=== PATIENT | male | born 1980 | race Caucasian/White ===

== ENCOUNTER 2018-06-01 08:53 | Emergency (ER) | payer BC, OTHER ==
--- OUTSIDE RECORDS SUMMARY | 2018-06-01 09:07 | XMS REPORT | Continuity of Care Document ---
:1980 External Reference #:[id number] Author Name Ann Del Rio M.D. Address [address] [place] [address] Care Team Providers Name Role Phone Ann Del Rio M.D. 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 Active Onset: 06/15/2016 Crohn's disease Ann Del Rio M.D. 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 Iron Budesonide 09/24/ Active Caps DR Part 3mg 2 cap by I10 Monica Del Rio mouth Ann Menendez, every M.D. day-GI Anucort-HC 02/09/ Active Suppository 25mg 24unit [address] I10 Quang, 2017 s of rectum Ahmad M., twice a M.D. day as needed Lisinopril 06/15/ Active Tablets 10mg 90tabs 1 by I10 Quang, 2017 mouth Ahmad M., every day M.D. Womens Daily 02/09/ Hx Tablets 90tabs 1 by E55.9 Quang, Formula/Folic 2016 - mouth Ahmad M., Acid/Calcium/ 10/02/ every day M.D. Iron 2018 Tricor 08/25/ Hx Tablets 145mg 90tabs 1 by E78.2 Quang, 2017 - mouth Ahmad M., 05/23/ every day M.D. 2019 Pentasa 06/15/ Hx Capsules ER 500mg 3 cap by I10 Quang, 2017 - mouth Ahmad M., 09/24/ twice a M.D. 2018 day-By GI Pravastatin / Hx Tablets 20mg 90tabs 1 by E78.2 Quang, Sodium 0000 - mouth Ahmad M., 11/08/ every at M.D. 2018 bedtime Immunizations Description No Information Available Vital Signs Date Vital Result Comment 05/23/2018 8:48am BP Systolic 132 mmHg BP Diastolic 74 mmHg Height 67 inches 5'7" Weight 157.00 lb BMI (Body Mass Index) 24.6 kg/m2 Heart Rate 96 /min Respiratory Rate 16 /min 04/12/2018 8:35am BP Systolic 110 mmHg BP Diastolic 68 mmHg Height 67 inches 5'7" Weight 157.00 lb BMI (Body Mass Index) 24.6 kg/m2 Heart Rate 78 /min Respiratory Rate 16 /min 04/08/2018 4:21pm BP Systolic 134 mmHg BP Diastolic 66 mmHg Height 67 inches 5'7" Weight 159.00 lb BMI (Body Mass Index) 24.9 kg/m2 Heart Rate 87 /min Respiratory Rate 16 /min 11/08/2017 3:11pm BP Systolic 130 mmHg BP Diastolic 70 mmHg Height 67 inches 5'7" Weight 159.00 lb BMI (Body Mass Index) 24.9 kg/m2 Heart Rate 89 /min Respiratory Rate 16 /min 10/02/2017 1:45pm BP Systolic 126 mmHg BP Diastolic 78 mmHg Height 67 inches 5'7" Weight 161.00 lb BMI (Body Mass Index) 25.2 kg/m2 Heart Rate 87 /min Respiratory Rate 18 /min 09/24/2017 9:20am BP Systolic 130 mmHg BP Diastolic 78 mmHg Height 67 inches 5'7" Weight 161.00 lb BMI (Body Mass Index) 25.2 kg/m2 Heart Rate 91 /min Respiratory Rate 18 /min 06/22/2017 8:48am BP Systolic 110 mmHg BP Diastolic 80 mmHg Height 67 inches 5'7" Weight 158.00 lb BMI (Body Mass Index) 24.7 kg/m2 Heart Rate 75 /min Respiratory Rate 18 /min 02/09/2017 10:11am BP Systolic 110 mmHg BP Diastolic 70 mmHg Height 67 inches 5'7" Weight 156.00 lb BMI (Body Mass Index) 24.4 kg/m2 Heart Rate 95 /min Respiratory Rate 16 /min 01/02/2017 8:34am BP Systolic 110 mmHg BP Diastolic 72 mmHg Height 67 inches 5'7" Weight 155.00 lb BMI (Body Mass Index) 24.3 kg/m2 Heart Rate 116 /min Respiratory Rate 16 /min 08/25/2016 11:03am BP Systolic 110 mmHg BP Diastolic 78 mmHg Height 67 inches 5'7" Weight 158.00 lb BMI (Body Mass Index) 24.7 kg/m2 Heart Rate 79 /min Respiratory Rate 18 /min 06/23/2016 8:33am BP Systolic 122 mmHg BP Diastolic 72 mmHg Height 67 inches 5'7" Weight 154.00 lb BMI (Body Mass Index) 24.1 kg/m2 Heart Rate 90 /min Respiratory Rate 18 /min 06/15/2016 10:07am BP Systolic 130 mmHg BP Diastolic 88 mmHg Height 67 inches 5'7" Weight 154.00 lb BMI (Body Mass Index) 24.1 kg/m2 Heart Rate 100 /min Respiratory Rate 18 /min Results Test Date Facility Test Result H/L Range Note CBC With Diff 04/12/2018 [facility] WBC 10.3 10*3/uL (4.1-11.0) [address] [facility] ([facility])- - RBC 4.55 10*6/uL Low (4.60-6.10) HGB 13.4 g/dL Low (13.5-18.0) HCT 40.0 % Low (41.0-53.0) MCV 87.8 fL (80.0-95.0) MCH 29.4 pg (27.0-32.0) MCHC 33.4 g/dL (32.0-36.0) RDW 13.5 % (10.5-14.5) PLT 342 10*3/uL (150-450) MPV 9.0 fL (7.1-10.7) Neut % 78.9 % High (35.0-75.0) Lymph % 13.7 % Low (16.0-52.0) [place] % 6.4 % (0.0-8.0) Eos % 0.5 % (0.0-5.0) Baso % 0.5 % (0.0-4.0) Neut # 8.1 10*3/uL High (1.8-7.7) Lymph # 1.4 10*3/uL (1.2-4.8) [place] # 0.7 10*3/uL (0.0-0.8) Eos # 0.0 10*3/uL (0.0-0.5) Baso # 0.0 10*3/uL (0.0-0.2) CMP 04/12/2018 [facility] Sodium 140 mmol/L (136-145) [address] [facility] (607)- - Potassium 4.1 mmol/L (3.6-5.2) Chloride 105 mmol/L (100-108) Co2 27 mmol/L (22-31) Anion Gap 8 mmol/L (7-16) Urea Nitrogen 14 mg/dL (7-24) Creatinine 1.09 mg/dL (0.80-1.30) BUN/Creat Ratio 12.8 RATIO (10.0-20.0) Glucose 80 mg/dL (70-99) Calcium 8.8 mg/dL (8.4-10.2) Total Protein 7.1 g/dL (6.4-8.2) Albumin 3.5 g/dL (3.5-4.6) Globulin 3.6 g/dL (2.7-4.3) Alb/Glob Ratio 1.0 RATIO Alkaline Phosphatase 68 U/L (45-117) Bilirubin,Total 0.4 mg/dL (0.0-1.0) Ast (Sgot) 19 U/L (11-39) Alt (SGPT) 27 U/L (12-78) GFR >60 ml/min/1.73m2 (>59) GFR ( Amer) >60 ml/min/1.73m2 (>59) GFR Interpretation <SEE NOTE> 1 Laboratory test 04/12/2018 [facility] Ferritin @ 84 ng/mL (26-388) finding [address] [facility] (607)- - Iron Panel 04/12/2018 [facility] Iron,Total @ 95 g/dL (35-150) [address] (607)- - Uibc @ 392 g/dL High (130-375) Tibc @ 487 g/dL High (250-450) % Saturation 20 % (12-50) Laboratory test 04/12/2018 [facility] Folate @ >20.0 ng/mL High (3.1- 17.5) finding [address] (607)- - Vitamin B12 @ 402 pg/mL (193-986) Transferrin 373 mg/dL 2 25 Hydroxy Vit D @ 26 ng/mL Low (31-100) 3 Lipid Extended Panel 04/12/2018 [facility] Appearance CLEAR (Clear) [address] [facility] (607)- - Cholesterol @ 148 mg/dL (0-200) Triglyceride @ 117 mg/dL (30-200) HDL Cholesterol @ 52 mg/dL (>40) 4 Chol/HDL Ratio 2.8 RATIO 5 Direct LDL @ 76 mg/dL (<130) 6 VLDL (Calc) 20 mg/dL (0-30) Laboratory test 04/12/2018 [facility] Magnesium 2.3 mg/dL (1.7-2.4) finding [address] [facility] (607)- - TSH,Ultrasensitive @ 2.560 mIU/L (0.360-4.170) Free Thyroxine @ 0.97 ng/dL (0.76-1.46) Lipid Profile (Trig/Chol/HDL) 09/24/2017 [facility] Triglycerides 111 mg/dL 7 Cholesterol 122 mg/dL 8 HDL Cholesterol 50.6 mg/dL 9 LDL Cholesterol 49 mg/dL 10 Laboratory test 09/24/2017 [facility] Erythrocyte Sed Rate 10 mm/Hr N 0-14 finding TSH (Thyroid Stim Horm) 1.18 mcIU/mL N 0.34-5.60 Free T4 (Free Thyroxine) 0.89 ng/dL N 0.61-1.12 Comp Metabolic Panel 09/24/2017 [facility] Sodium 138 mmol/L Low 139- 145 Potassium 3.9 mmol/L N 3.5-5.0 Chloride 103 mmol/L N 101-111 Co2 Carbon Dioxide 27 mmol/L N 22-32 Anion Gap 8 mmol/L N 2-11 Glucose 97 mg/dL N 70-100 Blood Urea Nitrogen 12 mg/dL N 6-24 Creatinine 0.91 mg/dL N 0.67-1.17 BUN/Creatinine Ratio 13.2 N 8-20 Calcium 9.5 mg/dL N 8.6-10.3 Total Protein 6.7 g/dL N 6.4-8.9 Albumin 4.0 g/dL N 3.2-5.2 Globulin 2.7 g/dL N 2-4 Albumin/Globulin Ratio 1.5 N 1-3 Total Bilirubin 0.40 mg/dL N 0.2-1.0 Alkaline Phosphatase 60 U/L N 34-104 Alt 16 U/L N 7-52 Ast 18 U/L N 13-39 Egfr Non- 93.7 >60 Egfr 120.6 >60 11 CBC Auto Diff 09/24/2017 [facility] White Blood Count 7.4 10^3/uL N 3.5-10.8 Red Blood Count 4.57 10^6/uL N 4.0-5.4 Hemoglobin 13.3 g/dL Low 14.0-18.0 Hematocrit 40 % Low 42-52 Mean Corpuscular Volume 88 fL N 80-94 Mean Corpuscular Hemoglobin 29 pg N 27-31 Mean Corpuscular HGB Conc 33 g/dL N 31-36 Red Cell Distribution Width 13 % N 10.5-15 Platelet Count 301 10^3/uL N 150-450 Mean Platelet Volume 9.0 um3 N 7.4-10.4 Abs Neutrophils 5.3 10^3/uL N 1.5-7.7 Abs Lymphocytes 1.4 10^3/uL N 1.0-4.8 Abs Monocytes 0.6 10^3/uL N 0-0.8 Abs Eosinophils 0 10^3/uL N 0-0.6 Abs Basophils 0 10^3/uL N 0-0.2 Abs Nucleated RBC 0 10^3/uL Granulocyte % 71.5 % N 38-83 Lymphocyte % 19.4 % Low 25-47 Monocyte % 8.0 % High 0-7 Eosinophil % 0.4 % N 0-6 Basophil % 0.7 % N 0-2 Nucleated Red Blood Cells % 0 Ua RFX Micro & Culture II 08/13/2017 [facility] Urine Color YELLOW Yellow 12 Urine Clarity CLEAR Clear Urine Glucose - Dipstick NEGATIVE mg/dL Negative Urine Bilirubin - Dipstick NEGATIVE Negative Urine Ketone NEGATIVE mg/dL Negative Urine Specific [place] <=1.005 Low 1.010-1.030 Urine Blood NEGATIVE Negative Urine PH 5.5 Low 6.5-7.5 Urine Protein - Dipstick NEGATIVE mg/dL Negative Urine Urobilinogen - Dipstick 0.2 E.U./dL N 0.2-1.0 Urine Nitrite - Dipstick NEGATIVE Negative Urine Leuk Esterase NEGATIVE Negative Source: URINE, CLEAN CAT <SEE NOTE> 13 Comprehensive Metabolic Panel 08/13/2017 [facility] Glucose 126 mg/dL High 74-106 BUN 13 mg/dL N 7-18 Creatinine 1.2 mg/dL N 0.6-1.3 Glom Filtration Rate, Estimate >60 mL/min >60 If >60 mL/min >60 14 BUN/Creat 10.8 ratio Sodium 137 mmol/L N 136-145 Potassium 3.6 mmol/L N 3.5-5.1 Chloride 103 mmol/L N 98-107 Carbon Dioxide 25 mmol/L N 21-32 Anion Gap 9 mEq/L N 8-16 Calcium 8.8 mg/dL N 8.5-10.1 Total Protein 7.1 g/dL N 6.4-8.2 Albumin 3.2 g/dL Low 3.4-5.0 Globulin 3.9 g/dL N 1.9-4.3 Alb/Glob 0.8 ratio Bilirubin,Total 0.1 mg/dL Low 0.2-1.0 Sgot/Ast 16 U/L N 15-37 SGPT/Alt 21 U/L N 12-78 Alkaline Phosphatase 66 U/L N 45-117 Lactic Acid 08/13/2017 [facility] Lactic Acid 1.7 mmol/L N 0.4-1.9 Lab Reflex >2.0 for Sepsis? Y CBS W/Automated Diff 08/13/2017 [facility] White Blood Count 5.5 K/uL N 3.4 -10.5 Red Blood Count 4.51 M/uL N 4.20-5.80 Hemoglobin 13.3 gm/dL N 12.8-17.0 Hematocrit 40.2 % N 38.0-48.0 Mean Cell Volume 89.1 fl N 80.0-96.0 Mean Corpuscular HGB 29.5 pg N 27.0-33.0 Mean Corpuscular HGB Conc 33.1 g/dL N 31.7-36.0 Platelet Count 286 K/uL N 155-360 Red Cell Distri Width SD 40.1 fl N 36-51 Red Cell Distri Width %CV 12.5 % N 11.6-15.8 Mean Platelet Volume 10.3 fL N 6.6-10.6 15 Neut# 4.62 K/uL N 1.8-7.0 Lymph # 0.33 K/uL Low 1.0-4.0 [place] # 0.50 K/uL N 0.0-0.8 Eos # 0.07 K/uL N 0.0-0.5 Baso # 0.01 K/uL N 0.0-0.1 Laboratory test finding 08/13/2017 [facility] Slide Review DIFF ORDERED Differential-WBC Confirm 08/13/2017 [facility] Total Cells Counted 100 # CELLS Metamyelocyte% 2 % 0% Band% 7 % N 0-8 Neutrophils% 78 % High 33-73 Lymph% 7 % Low 20-42 Monocyte% 4 % N 0-10 Eosinophil% 1 % N 0-5 Basophil% 1 % N 0-2 Platelet Estimate NORMAL RBC Morphology NORMAL Blood Culture 08/13/2017 [facility] Blood Culture Aerobic NO GROWTH: FINAL < SEE 16 NOTE> Blood Culture Anaerobic NO GROWTH: FINAL <SEE NOTE> 17 Blood Culture 08/13/2017 [facility] Blood Culture Aerobic NO GROWTH: FINAL < SEE 18 NOTE> Blood Culture Anaerobic NO GROWTH: FINAL <SEE NOTE> 19 Laboratory test 08/13/2017 [facility] Rapid Strep Negative Negative 20 finding Molecular CBC Auto Diff 06/22/2017 [facility] White Blood 7.7 10^3/uL N 3.5- 10.8 Count Red Blood Count 4.48 10^6/uL N 4.0-5.4 Hemoglobin 13.3 g/dL Low 14.0-18.0 Hematocrit 39 % Low 42-52 Mean Corpuscular Volume 87 fL N 80-94 Mean Corpuscular Hemoglobin 30 pg N 27-31 Mean Corpuscular HGB Conc 34 g/dL N 31-36 Red Cell Distribution Width 14 % N 10.5-15 Platelet Count 321 10^3/uL N 150-450 Mean Platelet Volume 9 um3 N 7.4-10.4 Abs Neutrophils 5.2 10^3/uL N 1.5-7.7 Abs Lymphocytes 1.7 10^3/uL N 1.0-4.8 Abs Monocytes 0.7 10^3/uL N 0-0.8 Abs Eosinophils 0 10^3/uL N 0-0.6 Abs Basophils 0 10^3/uL N 0-0.2 Abs Nucleated RBC 0 10^3/uL Granulocyte % 68.0 % N 38-83 Lymphocyte % 21.4 % Low 25-47 Monocyte % 9.6 % High 1-9 Eosinophil % 0.6 % N 0-6 Basophil % 0.4 % N 0-2 Nucleated Red Blood Cells % 0 Comp Metabolic Panel 06/22/2017 [facility] Sodium 137 mmol/L N 133- 145 Potassium 4.1 mmol/L N 3.5-5.0 Chloride 103 mmol/L N 101-111 Co2 Carbon Dioxide 27 mmol/L N 22-32 Anion Gap 7 mmol/L N 2-11 Glucose 79 mg/dL N 70-100 Blood Urea Nitrogen 13 mg/dL N 6-24 Creatinine 1.02 mg/dL N 0.67-1.17 BUN/Creatinine Ratio 12.7 N 8-20 Calcium 9.6 mg/dL N 8.6-10.3 Total Protein 6.9 g/dL N 6.4-8.9 Albumin 4.0 g/dL N 3.2-5.2 Globulin 2.9 g/dL N 2-4 Albumin/Globulin Ratio 1.4 N 1-3 Total Bilirubin 0.50 mg/dL N 0.2-1.0 Alkaline Phosphatase 54 U/L N 34-104 Alt 17 U/L N 7-52 Ast 16 U/L N 13-39 Egfr Non- 82.6 >60 Egfr 106.3 >60 21 Laboratory test 06/22/2017 [facility] TSH (Thyroid Stim 1.56 mcIU/mL N 0.34-5.60 22 finding Horm) Lipid Profile 06/22/2017 [facility] Triglycerides 147 mg/dL 23 (Trig/Chol/HDL) Cholesterol 137 mg/dL 24 HDL Cholesterol 51.6 mg/dL 25 LDL Cholesterol 56 mg/dL 26 Laboratory test 06/22/2017 [facility] Erythrocyte Sed Rate 10 mm/Hr N 0-14 27 finding CA 125 (Ovarian Cancer Ag) 6.6 U/mL N 0-35 28 Vitamin D Total 25(Oh) 18.8 ng/mL Low 20-50 29 Comp Metabolic Panel 01/02/2017 [facility] Sodium 135 mmol/L N 133- 145 Potassium 4.4 mmol/L N 3.5-5.0 Chloride 103 mmol/L N 101-111 Co2 Carbon Dioxide 26 mmol/L N 22-32 Anion Gap 6 mmol/L N 2-11 Glucose 89 mg/dL N 70-100 Blood Urea Nitrogen 13 mg/dL N 6-24 Creatinine 0.95 mg/dL N 0.67-1.17 BUN/Creatinine Ratio 13.7 N 8-20 Calcium 9.7 mg/dL N 8.6-10.3 Total Protein 6.9 g/dL N 6.4-8.9 Albumin 4.1 g/dL N 3.2-5.2 Globulin 2.8 g/dL N 2-4 Albumin/Globulin Ratio 1.5 N 1-3 Total Bilirubin 0.40 mg/dL N 0.2-1.0 Alkaline Phosphatase 61 U/L N 34-104 Alt 14 U/L N 7-52 Ast 16 U/L N 13-39 Egfr Non- 89.7 N >60 Egfr 115.4 N >60 30 Laboratory test 01/02/2017 [facility] TSH (Thyroid Stim 1.11 mcIU/mL N 0.34-5.60 31 finding Horm) Lipid Profile 01/02/2017 [facility] Triglycerides 91 mg/dL N 32 (Trig/Chol/HDL) Cholesterol 107 mg/dL N 33 HDL Cholesterol 43.4 mg/dL N 34 LDL Cholesterol 45 mg/dL N 35 Laboratory test 01/02/2017 [facility] Erythrocyte Sed Rate 13 mm/Hr N 0-14 36 finding Vitamin D Total 25(Oh) 28.5 ng/mL Low 30-50 37 CBC Auto Diff 01/02/2017 [facility] White Blood Count 7.5 10^3/uL N 3.5-10.8 Red Blood Count 4.67 10^6/uL N 4.0-5.4 Hemoglobin 13.5 g/dL Low 14.0-18.0 Hematocrit 41 % Low 42-52 Mean Corpuscular Volume 88 fL N 80-94 Mean Corpuscular Hemoglobin 29 pg N 27-31 Mean Corpuscular HGB Conc 33 g/dL N 31-36 Red Cell Distribution Width 14 % N 10.5-15 Platelet Count 329 10^3/uL N 150-450 Mean Platelet Volume 9 um3 N 7.4-10.4 Abs Neutrophils 5.5 10^3/uL N 1.5-7.7 Abs Lymphocytes 1.2 10^3/uL N 1.0-4.8 Abs Monocytes 0.6 10^3/uL N 0-0.8 Abs Eosinophils 0.1 10^3/uL N 0-0.6 Abs Basophils 0 10^3/uL N 0-0.2 Abs Nucleated RBC 0 10^3/uL N Granulocyte % 73.7 % N 38-83 Lymphocyte % 16.7 % Low 25-47 Monocyte % 8.0 % N 1-9 Eosinophil % 1.2 % N 0-6 Basophil % 0.4 % N 0-2 Nucleated Red Blood Cells % 0.1 N Laboratory test 06/23/2016 [facility] Erythrocyte Sed 18 mm/Hr High 0 -14 38 finding Rate Vitamin B12 375 pg/mL N 180-914 39 Folic Acid (Folate) > 20.00 ng/mL N >3.99 40 Lipid Profile 06/23/2016 [facility] Triglycerides 840 mg/dL N 41 (Trig/Chol/HDL) Cholesterol 216 mg/dL N 42 HDL Cholesterol 30.9 mg/dL N 43 LDL Cholesterol (SEE NOTE) mg/dL N 44 Laboratory test 06/23/2016 [facility] TSH (Thyroid 1.39 mcIU/mL N 0.34-5.60 45 finding Stim Horm) Comp Metabolic 06/23/2016 [facility] Sodium 135 mmol/L N 133-145 Panel Potassium 4.1 mmol/L N 3.5-5.0 Chloride 101 mmol/L N 101-111 Co2 Carbon Dioxide 30 mmol/L N 22-32 Anion Gap 4 mmol/L N 2-11 Glucose 87 mg/dL N 70-100 Blood Urea Nitrogen 12 mg/dL N 6-24 Creatinine 0.90 mg/dL N 0.67-1.17 BUN/Creatinine Ratio 13.3 N 8-20 Calcium 9.6 mg/dL N 8.6-10.3 Total Protein 6.9 g/dL N 6.4-8.9 Albumin 4.0 g/dL N 3.2-5.2 Globulin 2.9 g/dL N 2-4 Albumin/Globulin Ratio 1.4 N 1-3 Total Bilirubin 0.50 mg/dL N 0.2-1.0 Alkaline Phosphatase 89 U/L N 34-104 Alt 17 U/L N 7-52 Ast 16 U/L N 13-39 Egfr Non- 96.0 N >60 Egfr 123.5 N >60 46 CBC Auto Diff 06/23/2016 [facility] White Blood Count 8.5 10^3/uL N 3.5-10.8 Red Blood Count 5.16 10^6/uL N 4.0-5.4 Hemoglobin 14.6 g/dL N 14.0-18.0 Hematocrit 45 % N 42-52 Mean Corpuscular Volume 86 fL N 80-94 Mean Corpuscular Hemoglobin 28 pg N 27-31 Mean Corpuscular HGB Conc 33 g/dL N 31-36 Red Cell Distribution Width 14 % N 10.5-15 Platelet Count 284 10^3/uL N 150-450 Mean Platelet Volume 9 um3 N 7.4-10.4 Abs Neutrophils 6.4 10^3/uL N 1.5-7.7 Abs Lymphocytes 0.9 10^3/uL Low 1.0-4.8 Abs Monocytes 0.5 10^3/uL N 0-0.8 Abs Eosinophils 0.1 10^3/uL N 0-0.6 Abs Basophils 0.5 10^3/uL High 0-0.2 Abs Nucleated RBC 0.01 10^3/uL N Granulocyte % 76.1 % N 38-83 Lymphocyte % 11.1 % Low 25-47 Monocyte % 5.9 % N 1-9 Eosinophil % 1.1 % N 0-6 Basophil % 5.8 % High 0-2 Nucleated Red Blood Cells % 0.1 N 1 NORMAL KIDNEY FUNCTION OR MILD DISEASE - GFR >OR=60 CHRONIC KIDNEY DISEASE - GFR 15 - 59 RENAL FAILURE - GFR <15 Est. GFR calculation based on the MDRD study equation, which assumes a steady state for creatinine. Est. GFR should not be used for medication dosing. 2 Reference range: 200 to 400 Performed by [facility], [address] [place] [address],[place] [address] [email or web address], Phill Stanley MD, Lab. Director 3 A REVIEW OF THE LITERATURE SUGGESTS THE FOLLOWING RANGES FOR THE CLASSIFICATION OF 25-OH VITAMIN D STATUS: VITAMIN D STATUS 25-OH VITAMIN D DEFICIENCY <20 NG/ML INSUFFICIENCY 20-30 NG/ML SUFFICIENCY 31 - 100 NG/ML TOXICITY > 100 NG/ML A PEDIATRIC REFERENCE RANGE HAS NOT BEEN ESTABLISHED USING THIS METHOD. 4 PER NCEP ATP III GUIDELINES: RESULTS LOWER THAN 40 MG/DL ARE SUGGESTIVE OF INCREASED RISK FOR CORONARY ARTERY DISEASE. RESULTS > OR=TO 60 MG/DL ARE CONSIDERED A NEGATIVE RISK FACTOR. 5 INTERPRETATION OF CHOL-HDL RATIO CHD RISK FEMALE MALE VERY HIGH >8.3 >14.3 HIGH 5.6- 8.3 6.7- 14.3 AVERAGE 3.7- 5.6 4.0- 6.7 BELOW AVERAGE 2.5- 3.7 2.7- 4.0 PROTECTED <2.5 <2.7 6 PER NCEP ATP III GUIDELINES: OPTIMAL < 100 NEAR OPTIMAL 100 - 129 BORDERLINE HIGH 130 - 159 HIGH 160 - 189 VERY HIGH > 189 7 Desirable: <150 Borderline High: 150-199 High: 200-499 Very High: >500 8 Desirable: <200 Borderline High: 200-239 High: >239 9 Low: <40 Desirable: 40-60 High: >60 10 Desirable: <100 Near Optimal: 100-129 Borderline High: 130-159 High: 160-189 Very High: >189 11 Because ethnic data is not always readily available, this report includes an eGFR for both -Americans and non- Americans. The National Kidney Disease Education Program (NKDEP) does not endorse the use of the MDRD equation for patients that are not between the ages of 18 and 70, are , have extremes of body size, muscle mass, or nutritional status, or are non- or non-. According to the National Kidney Foundation, irrespective of diagnosis, the stage of the disease is based on the level of kidney function: Stage Description GFR(mL/min/1.73 m(2)) 1 Kidney damage with normal or decreased GFR 90 2 Kidney damage with mild decrease in GFR 60-89 3 Moderate decrease in GFR 30-59 4 Severe decrease in GFR 15-29 5 Kidney failure <15 (or dialysis) 12 FEVER, KENAITZE GREEN URINE,DX WITH VIRAL INF BY CC 13 URINE, CLEAN CATCH 14 Note: Persistent reduction for 3 months or more in an eGFR <60 mL/min/1.73 m2 defines CKD. Patients with eGFR values >/=60 mL/min/1.73 m2 may also have CKD if evidence of persistent proteinuria is present. The original MDRD equation for estimated GFR is not valid for patients less than 18 years of age. Additional information may be found at www.kdoqi.org. 15 08/13/17 2245: NEUT% previously reported as: 83.5 H % Amended result called to: [] 08/13/17 at 224408/13/17 2245: LYMPH % previously reported as: 6.0 L % Amended result called to: [] 08/13/17 at 224408/13/17 2245: MONO % previously reported as: 9.0 % Amended result called to: [] 08/13/17 at 224408/13/17 2245: EO% previously reported as: 1.3 % Amended result called to: [] 08/13/17 at 224408/13/17 2245: BAS% previously reported as: 0.2 % Amended result called to: [] 08/13/17 at 2245 16 NO GROWTH: FINAL REPORT 17 NO GROWTH: FINAL REPORT 18 NO GROWTH: FINAL REPORT 19 NO GROWTH: FINAL REPORT 20 Lab Engineer: [id number] Because ethnic data is not always readily available, this report includes an eGFR for both -Americans and non- Americans. The National Kidney Disease Education Program (NKDEP) does not endorse the use of the MDRD equation for patients that are not between the ages of 18 and 70, are , have extremes of body size, muscle mass, or nutritional status, or are non- or non-. According to the National Kidney Foundation, irrespective of diagnosis, the stage of the disease is based on the level of kidney function: Stage Description GFR(mL/min/1.73 m(2)) 1 Kidney damage with normal or decreased GFR 90 2 Kidney damage with mild decrease in GFR 60-89 3 Moderate decrease in GFR 30-59 4 Severe decrease in GFR 15-29 5 Kidney failure <15 (or dialysis) 22 [id number] 23 Desirable: <150 Borderline High: 150-199 High: 200-499 Very High: >500 24 Desirable: <200 Borderline High: 200-239 High: >239 25 Low: <40 Desirable: 40-60 High: >60 26 Desirable: <100 Near Optimal: 100-129 Borderline High: 130-159 High: 160-189 Very High: >189 27 [id number] 28 Instrument used is Shilo velingo DXI 600. The assay is a two-site immunoenzymatic "sandwich" assay. Do not interpret CA125 levels as absolute evidence of the presence or the absence of malignant disease. Use in conjunction with information from the clinical evaluation of the patient and other diagnostic procedures. Values obtained with different assay methods cannot be used interchangeably. 29 [id number] 30 Because ethnic data is not always readily available, this report includes an eGFR for both -Americans and non- Americans. The National Kidney Disease Education Program (NKDEP) does not endorse the use of the MDRD equation for patients that are not between the ages of 18 and 70, are , have extremes of body size, muscle mass, or nutritional status, or are non- or non-. According to the National Kidney Foundation, irrespective of diagnosis, the stage of the disease is based on the level of kidney function: Stage Description GFR(mL/min/1.73 m(2)) 1 Kidney damage with normal or decreased GFR 90 2 Kidney damage with mild decrease in GFR 60-89 3 Moderate decrease in GFR 30-59 4 Severe decrease in GFR 15-29 5 Kidney failure <15 (or dialysis) 31 [id number] 32 Desirable <150 Borderline high 150-199 High 200-499 Very High >500 33 Desirable <200 Borderline high 200-239 High >239 34 Low <40 Desirable: 40-60 High: >60 35 Desirable: <100 mg/dL Near Optimal: 100-129 mg/dL Borderline High: 130-159 mg/dL High: 160-189 mg/dL Very High: >189 mg/dL 36 [id number] Normal Range 180 to 914 Indeterminate Range 145 to 180 Deficient Range <145 40 [id number] Desirable <150 Borderline high 150-199 High 200-499 Very High >500 42 Desirable <200 Borderline high 200-239 High >239 43 Low <40 Desirable: 40-60 High: >60 44 Unable to calculate LDL as triglyceride is > 400 45 [id number] Because ethnic data is not always readily available, this report includes an eGFR for both -Americans and non- Americans. The National Kidney Disease Education Program (NKDEP) does not endorse the use of the MDRD equation for patients that are not between the ages of 18 and 70, are , have extremes of body size, muscle mass, or nutritional status, or are non- or non-. According to the [employer], irrespective of diagnosis, the stage of the disease is based on the level of kidney function: Stage Description GFR(mL/min/1.73 m(2)) 1 Kidney damage with normal or decreased GFR 90 2 Kidney damage with mild decrease in GFR 60-89 3 Moderate decrease in GFR 30-59 4 Severe decrease in GFR 15-29 5 Kidney failure <15 (or dialysis) Procedures Date Code Description Status 09/24/2017 60301 EKG Completed 06/15/2016 35247 Visual Screening Test Completed 06/15/2016 10543 EKG Completed 06/15/2016 15013 Audiometry, [place], Screening Completed 09/04/2014 [id number] Colonoscopy Completed Encounters Type Date Location Provider Dx Diagnosis Office Visit 04/12/2018 [facility] Mario Willingham, I10 Essential ( primary) 8:30a N.P. hypertension E78.2 Mixed hyperlipidemia K50.00 Crohn's disease of small intestine without complications R19.7 Diarrhea, unspecified L20.9 Atopic dermatitis, unspecified J30.9 Allergic rhinitis, unspecified E55.9 Vitamin D deficiency, unspecified K59.00 Constipation, unspecified K64.9 Unspecified hemorrhoids R07.9 Chest pain, unspecified R00.2 Palpitations R06.02 Shortness of breath D63.8 Anemia in other chronic diseases classified elsewhere I34.1 Nonrheumatic mitral (valve) prolapse Office Visit 04/08/2018 4:15p Ann Hutson I10 Essential ( primary) Joseph hypertension E78.2 Mixed hyperlipidemia K50.00 Crohn's disease of small intestine without complications R19.7 Diarrhea, unspecified L20.9 Atopic dermatitis, unspecified J30.9 Allergic rhinitis, unspecified E55.9 Vitamin D deficiency, unspecified K59.00 Constipation, unspecified K64.9 Unspecified hemorrhoids R07.9 Chest pain, unspecified R00.2 Palpitations R06.02 Shortness of breath D63.8 Anemia in other chronic diseases classified elsewhere Office Visit 11/08/2017 3:15p [facility] [facility] Ann Del Rio0 Essential ( primary) Joseph Menendez hypertension E78.2 Mixed hyperlipidemia K50.00 Crohn's disease of small intestine without complications R19.7 Diarrhea, unspecified L20.9 Atopic dermatitis, unspecified J30.9 Allergic rhinitis, unspecified E55.9 Vitamin D deficiency, unspecified K59.00 Constipation, unspecified K64.9 Unspecified hemorrhoids R07.9 Chest pain, unspecified R00.2 Palpitations R06.02 Shortness of breath D63.8 Anemia in other chronic diseases classified elsewhere Office Visit 10/02/2017 1:45p [facility] Ann Del Rio I10 Essential ( primary) Joseph Menendez hypertension E78.2 Mixed hyperlipidemia K50.00 Crohn's disease of small intestine without complications R19.7 Diarrhea, unspecified L20.9 Atopic dermatitis, unspecified J30.9 Allergic rhinitis, unspecified E55.9 Vitamin D deficiency, unspecified K59.00 Constipation, unspecified K64.9 Unspecified hemorrhoids R07.9 Chest pain, unspecified R00.2 Palpitations R06.02 Shortness of breath D63.8 Anemia in other chronic diseases classified elsewhere Office Visit 09/24/2017 9:15a [facility] Ann Del Rio Essential ( primary) Joseph Menendez hypertension E78.2 Mixed hyperlipidemia K50.00 Crohn's disease of small intestine without complications R19.7 Diarrhea, unspecified L20.9 Atopic dermatitis, unspecified Z68.25 Body mass index (BMI) 25.0-25.9, adult J30.9 Allergic rhinitis, unspecified E55.9 Vitamin D deficiency, unspecified K59.00 Constipation, unspecified K64.9 Unspecified hemorrhoids R07.9 Chest pain, unspecified R00.2 Palpitations R06.02 Shortness of breath Z00.01 Encounter for general adult medical exam w abnormal findings Office Visit 06/22/2017 8:30a [facility] [facility] Ann Del Rio Essential ( primary) Joseph Menendez hypertension E78.2 Mixed hyperlipidemia K50.00 Crohn's disease of small intestine without complications R19.7 Diarrhea, unspecified L20.9 Atopic dermatitis, unspecified J30.9 Allergic rhinitis, unspecified R07.9 Chest pain, unspecified R00.2 Palpitations E55.9 Vitamin D deficiency, unspecified J00 Acute nasopharyngitis [common cold] R09.81 Nasal congestion R04.0 Epistaxis K59.00 Constipation, unspecified K64.9 Unspecified hemorrhoids Office Visit 02/09/2017 10:15a [facility] Ann Del Rio Essential ( primary) Joseph Menendez hypertension E78.2 Mixed hyperlipidemia K50.00 Crohn's disease of small intestine without complications R19.7 Diarrhea, unspecified L20.9 Atopic dermatitis, unspecified J30.9 Allergic rhinitis, unspecified R07.9 Chest pain, unspecified R00.2 Palpitations E55.9 Vitamin D deficiency, unspecified J00 Acute nasopharyngitis [common cold] R09.81 Nasal congestion R04.0 Epistaxis K59.00 Constipation, unspecified K64.9 Unspecified hemorrhoids Office Visit 01/02/2017 8:30a [facility] Ann Del Rio Essential ( primary) Joseph Menendez hypertension E78.2 Mixed hyperlipidemia K50.00 Crohn's disease of small intestine without complications R19.7 Diarrhea, unspecified L20.9 Atopic dermatitis, unspecified J30.9 Allergic rhinitis, unspecified R07.9 Chest pain, unspecified R00.2 Palpitations E55.9 Vitamin D deficiency, unspecified Office Visit 08/25/2016 11:00a [facility] Ann Del Rio I10 Essential ( primary) Joseph Menendez hypertension E78.2 Mixed hyperlipidemia K50.00 Crohn's disease of small intestine without complications R19.7 Diarrhea, unspecified L20.9 Atopic dermatitis, unspecified J30.9 Allergic rhinitis, unspecified R07.9 Chest pain, unspecified R00.2 Palpitations E55.9 Vitamin D deficiency, unspecified Office Visit 06/23/2016 8:30a [facility] Ann Del Rio I10 Essential ( primary) Joseph Menendez hypertension E78.2 Mixed hyperlipidemia K50.00 Crohn's disease of small intestine without complications R19.7 Diarrhea, unspecified L20.9 Atopic dermatitis, unspecified J30.9 Allergic rhinitis, unspecified R07.9 Chest pain, unspecified R00.2 Palpitations Office Visit 06/15/2016 10:00a [facility] Ann Del Rio Z00.01 Encounter for Joseph Menendez general adult medical exam w abnormal findings I10 Essential (primary) hypertension E78.2 Mixed hyperlipidemia K50.00 Crohn's disease of small intestine without complications R19.7 Diarrhea, unspecified L20.9 Atopic dermatitis, unspecified J30.9 Allergic rhinitis, unspecified R07.9 Chest pain, unspecified R00.2 Palpitations Z68.24 Body mass index (BMI) 24.0-24.9, adult Plan of Treatment 05/23/2018 - Ann Del Rio M.D.I10 Essential (primary) hypertensionComments: CHECK BP TIW ( PRN)DIET AND FLUID COUNSELING LOW SODIUM DIETWT LOSSF/U LABE78.2 Mixed hyperlipidemiaComments:DIET REVIEWED CONTINUE DIETWT LOSSF/U LAB FBW 1 MONTHFollow up:3 zurqpdF30.7 Diarrhea, unspecifiedComments:INCREASE PO FLUID DIET REVIEW DIET PRNIMMODIUM PRN CONTINUE WITH RXF/U WITH GIL20.9 Atopic dermatitis, unspecifiedComments:SKIN CARE INSTRUCTIONS LOTION OR BABY OIL 2-3 APPLICATION PER DAYUSE MOISTURIZING SOAPAVOID PROLONGED WATER EXPOSUREAVOID USING HOT WATER IN UBLKEBL61.9 Allergic rhinitis, unspecifiedComments:INCREASE PO FLUID USE ANTIHISTAMINE PRN SECOND HAND SMOKING [id number] Vitamin D deficiency, unspecifiedComments:INCREASE EXPOSURE TO SUNREVIEW OF DIETK59.00 Constipation, unspecifiedComments:MOM OR MIRALAX PRNHIGH FIBER DIETINCREASE PO AGCSUB96.9 Chest pain, unspecifiedComments:OBSERVE AND DOGNVHICQ24.2 PalpitationsComments:JBQFKISUFGWTNWOK89.02 Shortness of breathComments:OBSERVE AND FBMFGSAQW53.8 Anemia in other chronic diseases classified elsewhereComments: TAKE MEDICATIONSF/U LABSOBSERVE FOR NOWK50.811 Crohn's disease of both small and large intestine with rectal bleedingComments:INCREASE PO FLUID DIET REVIEW DIET PRNIMMODIUM PRN F/U WITH GIK64.9 Unspecified hemorrhoidsComments: AVOID CONSTIPATOIN INCREASE FIBER IN DIETLAXATIVE PRNLUBRICATE ANAL AREA WITH LOTION PRN FOR [id number] Acute nasopharyngitis [common cold]Comments:INCREASE PO FLUIDTYLENOL OR MOTRIN PRNREST USE ANTIHISTAMINE PRN DDHIGGVBIH26.0 Frequency of micturitionComments:INCREASE PO FLUID OBSERVE AND BFGOAKNBA18.0 DysuriaComments:INCREASE PO FLUIDTYLENOL OR MOTRIN PRN
[2018-06-01 09:09] VITALS: BP 114/67
--- NOTE | 2018-06-01 09:29 | UC ---
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 Pain is minimal when no motion, escalates to a 9 with movement." -He is unsure of exactly how he fell, however he was bumped from the left side and landed sideways on his right shoulder he believes. He has had several injuries to this shoulder including dislocation in the past. He denies this feeling with dislocation. This is different. Has great difficulty moving his arm and most planes except for internal rotation. No weakness numbing or tingling down his arm. He is right-hand dominant. - History of Current Complaint Chief Complaint: UCGeneralIllness Stated Complaint: RT SHOULDER INJURY Time Seen by Provider: 06/01/18 09:07 Pain Intensity: 3 - Allergies/Home Medications Allergies/Adverse Reactions: Allergies Allergy/AdvReac Type Severity Reaction Status Date / Time codeine Allergy Vomiting Verified 06/01/18 09:09 PMH/Surg Hx/FS Hx/Imm Hx Previously Healthy: Yes - Surgical History Surgical History: None - Family History Known Family History: Positive: Hypertension - Social History Alcohol Use: None Substance Use Type: None Smoking Status (MU): Never Smoked Tobacco Review of Systems All Other Systems Reviewed And Are Negative: Yes Constitutional: Positive: Negative Skin: Positive: Negative Eyes: Positive: Negative ENT: Positive: Negative Respiratory: Positive: Negative Cardiovascular: Positive: Negative Gastrointestinal: Positive: Negative Genitourinary: Positive: Negative Motor: Positive: Decreased ROM Neurovascular: Positive: Negative Musculoskeletal: Positive: Negative Neurological: Positive: Negative Psychological: Positive: Negative Is Patient Immunocompromised?: No Physical Exam Triage Information Reviewed: Yes Appearance: Well-Appearing, No Pain Distress, Well-Nourished - very pleasant Vital Signs: Initial Vital Signs Temp 98.3 F 06/01/18 09:07 Pulse 68 06/01/18 09:07 Resp 18 06/01/18 09:07 BP 114/67 06/01/18 09:07 Pulse Ox 98 06/01/18 09:07 Vital Signs Reviewed: Yes ENT Exam: Normal Respiratory Exam: Normal Respiratory: Positive: Lungs clear Cardiovascular Exam: Normal Musculoskeletal: Positive: ROM Limited @ - flexion, adduction and external rotation. neg empty can. nml internal rotation. cr brisk. + 2 radial. sensation intact. FROM of all digits. Neurological Exam: Normal Psychological Exam: Normal Skin Exam: Normal Upper Extremity Course/Dx - Course Course Of Treatment: rt shoulder xray: no frx. -ice, sling, motrin, rest. -FU w/ ortho in 2-3 days - Differential Dx/Diagnosis Differential Diagnosis/HQI/PQRI: Arthritis, Contusion, Fracture (Closed), Strain , Sprain Provider Diagnosis: Right shoulder pain Discharge - Sign-Out/Discharge Documenting (check all that apply): Patient Departure All imaging exams completed and their final reports reviewed: Yes - Discharge Plan Condition: Stable Disposition: HOME Patient Education Materials: Shoulder Pain (ED) Forms: *Work Release Referrals: Ann Del Rio MD [Primary Care Provider] - Natalie Nicole MD [Medical Doctor] - 3 Days Additional Instructions: Ice, rest, ibuprofen. The sling will help relieve the pressure. The xray did not show any fracture. Make sure to follow up with the orthopedist next week. - Billing Disposition and Condition Condition: STABLE Disposition: Home
== END 2018-06-01 10:23 | disposition home or self-care (01) ==
LOC: UCCORT 08:53
DX: M25.511 Pain in right shoulder (principal); R29.898 Other symptoms and signs involving the musculoskeletal system; Z88.5 Allergy status to narcotic agent
CPT/HCPCS: 99212; G0463

== ENCOUNTER 2019-02-23 10:49 | Emergency (ER) | payer BC ==
[2019-02-23 11:06] VITALS: BP 126/78
[2019-02-23] MEDS ORDERED: Tetan/Diph/Pertus SYR(Tdap)* 0.5 ML SYR(BOOSTRIX) use SYR contains LATEX IM ONE (11:48)
--- NOTE | 2019-02-23 11:50 | UC ---
Bite Injury/Animal HPI - HPI Summary HPI Summary: 38 year old male presents stating his dog bit him on his right thumb after he tried to take a bag of meat that was in the yard away from the dog and he bit him. Dog is UTD with shots. Patient requires an updated tetanus shot. He cleaned area with soap and water and applied abx ointment. He is able to move his right thumb without difficulty. - History of Current Complaint Chief Complaint: UCSkin Stated Complaint: DOG BITE, R THUMB Time Seen by Provider: 02/23/19 11:02 Hx Obtained From: Patient Pain Intensity: 5 Onset/Duration: Sudden Onset, Lasting Minutes - 90 minutes ago. Type of Bite: Animal - patient's dog Has Animal Been Immunized?: Yes Character: Abrasion/Laceration - abrasion, no lacreration. Associated Signs And Symptoms: Positive: Negative Hx of Bite: Provoked by: - taking meat away Animal Available for Observation: Yes Animal Control Notified: No - Allergies/Home Medications Allergies/Adverse Reactions: Allergies Allergy/AdvReac Type Severity Reaction Status Date / Time codeine Allergy Vomiting Verified 02/23/19 11:06 Home Medications: Home Medications Lisinopril TAB* [Prinivil TAB*] 10 mg PO DAILY 02/23/19 [History Confirmed 02/23] PMH/Surg Hx/FS Hx/Imm Hx Previously Healthy: Yes Cardiovascular History: Hypertension GI/ History: Other - Crohn's Disease - Surgical History Surgical History: None - Family History Known Family History: Positive: Hypertension - Social History Alcohol Use: None Substance Use Type: None Smoking Status (MU): Never Smoked Tobacco - Immunization History Most Recent Tetanus Shot: not UTD Review of Systems All Other Systems Reviewed And Are Negative: Yes Constitutional: Negative: Fever, Chills Skin: Positive: Other - abrasion right thumb. Negative: Bruising Eyes: Positive: Negative ENT: Positive: Negative Respiratory: Positive: Negative Cardiovascular: Positive: Negative Gastrointestinal: Positive: Negative Genitourinary: Positive: Negative Motor: Negative: Decreased ROM, Weakness Neurovascular: Negative: Decreased Sensation, Decreased Pulses Musculoskeletal: Negative: Decreased ROM, Edema Neurological: Positive: Negative Psychological: Positive: Negative Is Patient Immunocompromised?: No Physical Exam Triage Information Reviewed: Yes Appearance: Well-Appearing, No Pain Distress Vital Signs: Initial Vital Signs Temp 99.5 F 02/23/19 11:01 Pulse 81 10/20/19 11:01 Resp 18 02/23/19 11:01 BP 126/78 02/23/19 11:01 Pulse Ox 99 02/23/19 11:01 Vital Signs Reviewed: Yes Eye Exam: Normal ENT: Positive: Normal ENT inspection Respiratory: Positive: Lungs clear, Normal breath sounds Cardiovascular: Positive: RRR, No Murmur Abdomen Description: Positive: Nontender, Soft Musculoskeletal Exam: Normal Musculoskeletal: Positive: Strength Intact, ROM Intact Neurological Exam: Normal Psychological Exam: Normal Skin: Negative: Significant Lesion(s) - a few superficial abrasions dorsum of left thumb. Bite Injury Course/Dx - Course Course Of Treatment: Superficial abrasions, no need for laceration repair. Area was cleansed with soap and water, antibiotic ointment and sterile dressing applied. Tdap today. - Differential Dx/Diagnosis Provider Diagnosis: Dog bite of right hand Discharge ED - Sign-Out/Discharge Documenting (check all that apply): Patient Departure All imaging exams completed and their final reports reviewed: Yes - Discharge Plan Condition: Stable Disposition: HOME Patient Education Materials: Animal Bite (ED) Referrals: Ann Del Rio MD [Primary Care Provider] - Additional Instructions: Cleanse site with soap and water at least twice daily and apply antibiotic ointment with bandage until healed. If redness, streaking or pus develop, return to Urgent Care for evaluation. - Billing Disposition and Condition Condition: STABLE Disposition: Home
== END 2019-02-23 11:58 | disposition home or self-care (01) ==
LOC: UCCORT 10:49
DX: S60.371A Other superficial bite of right thumb, initial encounter (principal); W54.0XXA Bitten by dog, initial encounter; I10 Essential (primary) hypertension; K50.90 Crohn's disease, unspecified, without complications; Z23 Encounter for immunization; Z79.899 Other long term (current) drug therapy; Z88.5 Allergy status to narcotic agent
CPT/HCPCS: 90471; 90715; 99212; G0463

== ENCOUNTER 2021-11-24 18:48 | Observation (INO) ==
[2021-11-24] MEDS ORDERED: Piperacillin/Tazobac ADVAN 3.375 GM in NS 0.9% 100 ml BAG 100 ML IV ONE ×2 (18:50→21:10)
[2021-11-24 20:16] LABS: ABS Basophils 0.1 10^3/ul (0-0.2); ABS Eosinophils 0.2 10^3/ul (0-0.6); ABS Lymphocytes 1.6 10^3/ul (1.0-4.8); ABS Monocytes 0.9 10^3/ul (0-0.8); ABS Neutrophils 6.2 10^3/ul (1.5-7.7); Eosinophil % 1.8 %; Hematocrit 30 % (42-52); Hemoglobin 9.7 g/dL (14.0-18.0); Mean Corpuscular HGB Conc 32 g/dL (31-36); Mean Corpuscular Hemoglobin 26 pg (27-31); Mean Corpuscular Volume 79 fL (80-94); Mean Platelet Volume 7.3 fL (7.4-10.4); Nucleated Red Blood Cells % 0.1; Platelet Count 474 10^3/uL (150-450); Red Blood Count 3.78 10^6 /uL (4.18-5.48); Red Cell Distribution Width 15 % (10-15); White Blood Count 8.9 10^3/uL (3.5-10.8)
[2021-11-24 20:43] LABS: ALT 17 U/L (7-52); AST 15 U/L (13-39); Albumin 3.3 g/dL (3.2-5.2); Albumin/Globulin Ratio 1.1 (1-3); Alkaline Phosphatase 73 U/L (35-149); Anion Gap 8 mmol/L (2-11); Blood Urea Nitrogen 15 mg/dL (6-24); CO2 Carbon Dioxide 25 mmol/L (22-32); Chloride 104 mmol/L (101-111); Globulin 2.9 g/dL (2-4); Glucose 104 mg/dL (70-100); Sodium 137 mmol/L (135-145); Total Protein 6.2 g/dL (6.4-8.9); eGFR CKD-EPI 107.2 (>60)
[2021-11-24] MEDS ORDERED: Al Hydrox/Mg Hydrox/Simet LIQ 30 ML UDC PO PRN (21:11)
[2021-11-24 21:34] LABS: Total Iron Binding Capacity 393 mcg/dL (250-450); Transferrin 281 mg/dL (203-362)
[2021-11-24 21:39] LABS: % Iron Saturation 5 % (15-55); Iron < 20 ug/dL (50-212); Unsaturated Iron Binding 373 ug/dL
[2021-11-24 21:57] LABS: C Reactive Protein 84.35 mg/L (<8.01)
[2021-11-24 21:59] LABS: Folate > 20.00 ng/mL (5.90-24.80)
[2021-11-24 22:00] LABS: Vitamin B12 361 pg/mL (180-914)
[2021-11-24] MEDS ORDERED: Zosyn per Pharmacy NOTE FOLLOW UP SCH (22:00)
[2021-11-25] MEDS: ZOSYN 3.375 GM Q8H per EXTENDED INFUSION IV SCH ×2 (00:42→09:48)
[2021-11-25 15:54] VITALS: BP 114/70
== END 2021-11-25 17:10 | disposition home or self-care (01) ==
LOC: EDHOLD 18:48 → ED 18:48 → MED 11-25 00:11
PROVIDERS: ADMIT Internal Medicine; ATTEND Internal Medicine